=== PATIENT | male | born 1965 | race Caucasian/White ===

== ENCOUNTER 2021-09-27 07:44 | Outpatient (REF) | payer BC, SELFPAY ==
[2021-09-27 08:06] LABS: MANUAL DIFF FLAG NO
[2021-09-27 09:27] LABS: Basophils Percent Auto 0.5 % (0-2); Eosinophils Absolute Auto 0.1 X10*3/uL (0.0-0.4); Eosinophils Percent Auto 1.8 % (0-4); Hematocrit 48.7 % (42.0-52.0); Hemoglobin 16.3 g/dl (14.0-18.0); Imm Gran Abs Auto 0.02 X10*3/uL (0.00-0.03); Imm Gran Pct Auto 0.3 % (0.0-0.4); Lymphocytes Absolute Auto 1.6 X10*3/uL (1.2-4.9); Lymphocytes Percent Auto 25.6 % (20-40); Mean Corpuscular HGB Conc 33.5 g/dl (31.0-36.0); Mean Corpuscular Hemoglobin 28.5 pg (27.0-33.0); Mean Corpuscular Volume 85.3 fL (80.0-98.0); Mean Platelet Volume 10.7 fL (9.4-12.4); Monocytes Absolute Auto 0.6 X10*3/uL (0.1-1.2); Monocytes Percent Auto 8.9 % (2-11); Neutrophils Absolute Auto 3.9 x10*3/uL (2.0-8.3); Neutrophils Percent Auto 62.9 % (45-73); Platelet Count 230 X10*3/uL (160-400); Red Blood Count 5.71 X10*6/uL (4.60-5.80); Red Cell Distribution Width 12.3 % (11.0-16.0); White Blood Count 6.3 X10*3/uL (4.8-10.8)
[2021-09-27 09:34] LABS: Estimated Average Glucose 105 mg/dL; Hemoglobin A1C 152.5393 umol/L; Hemoglobin A1c % 5.3 %
[2021-09-27 09:45] LABS: Alanine Aminotransferase 50 U/L (0-40); Albumin Level 4.5 g/dL (3.5-5.0); Alkaline Phosphatase 72 U/L (39-117); Anion Gap 12 (12-20); Aspartate Amino Transferase 24 U/L (5-37); Bilirubin Total 0.8 mg/dL (0.0-1.0); Blood Urea Nitrogen 13 mg/dL (9-16); Calcium 9.4 mg/dL (8.4-10.2); Carbon Dioxide 25 mmol/L (22-29); Chloride 105 mmol/L (96-108); Cholesterol 167 mg/dL; Estimated Glomerular Filt Rate > 60; Glucose Random 98 mg/dL (60-115); HDL Cholesterol 35 mg/dL; LDL Cholesterol Calculated 87 mg/dl; Potassium 4.3 mmol/L (3.3-5.1); Sodium 138 mmol/L (135-145); Total Protein 7.2 g/dL (6.5-8.0); Triglycerides 228 mg/dL
== END 2021-09-27 07:45 | disposition home or self-care (01) ==
LOC: HO.LAB 07:44
PROVIDERS: PCP Internal Medicine; Visit Provider Internal Medicine
DX: E78.5 Hyperlipidemia, unspecified (principal); R73.01 Impaired fasting glucose
CPT/HCPCS: 36415; 80053; 80061; 83036; 85025

== ENCOUNTER 2022-02-21 07:36 | Outpatient (REF) | payer BC, SELFPAY ==
[2022-02-21 09:06] LABS: Alanine Aminotransferase 28 U/L (0-40); Albumin Level 4.3 g/dL (3.5-5.0); Alkaline Phosphatase 67 U/L (39-117); Aspartate Amino Transferase 21 U/L (5-37); Bilirubin Direct 0.3 mg/dL (0.0-0.5); Bilirubin Total 0.7 mg/dL (0.0-1.0); Total Protein 6.9 g/dL (6.5-8.0)
== END 2022-02-21 07:37 | disposition home or self-care (01) ==
LOC: HO.LAB 07:36
PROVIDERS: PCP Internal Medicine; Visit Provider Internal Medicine
DX: R74.01 Elevation of levels of liver transaminase levels (principal)
CPT/HCPCS: 36415; 80076

== ENCOUNTER 2023-04-07 06:27 | Outpatient (REF) | payer BC, SELFPAY ==
[2023-04-07 06:43] LABS: MANUAL DIFF FLAG NO
[2023-04-07 07:02] LABS: Basophils Percent Auto 0.5 % (0-2); Eosinophils Absolute Auto 0.1 X10*3/uL (0.0-0.4); Hematocrit 49.3 % (42.0-52.0); Hemoglobin 16.7 g/dl (14.0-18.0); Imm Gran Abs Auto 0.02 X10*3/uL (0.00-0.03); Imm Gran Pct Auto 0.4 % (0.0-0.4); Lymphocytes Absolute Auto 1.4 X10*3/uL (1.2-4.9); Lymphocytes Percent Auto 26.2 % (20-40); Mean Corpuscular HGB Conc 33.9 g/dl (31.0-36.0); Mean Corpuscular Hemoglobin 28.8 pg (27.0-33.0); Mean Platelet Volume 10.1 fL (9.4-12.4); Monocytes Absolute Auto 0.5 X10*3/uL (0.1-1.2); Monocytes Percent Auto 9.3 % (2-11); Neutrophils Absolute Auto 3.4 x10*3/uL (2.0-8.3); Neutrophils Percent Auto 61.6 % (45-73); Platelet Count 210 X10*3/uL (160-400); Red Cell Distribution Width 12.3 % (11.0-16.0); White Blood Count 5.5 X10*3/uL (4.8-10.8)
[2023-04-07 07:07] LABS: Estimated Average Glucose 105 mg/dL; Hemoglobin A1c % 5.3 % (<6.0)
[2023-04-07 07:15] LABS: Alanine Aminotransferase 25 U/L (0-40); Albumin Level 4.4 g/dL (3.5-5.0); Alkaline Phosphatase 65 U/L (39-117); Anion Gap 14 (12-20); Aspartate Amino Transferase 21 U/L (5-37); Bilirubin Total 0.7 mg/dL (0.0-1.0); Blood Urea Nitrogen 10 mg/dL (9-16); Calcium 9.7 mg/dL (8.4-10.2); Carbon Dioxide 27 mmol/L (22-29); Chloride 104 mmol/L (96-108); Cholesterol 113 mg/dL (<200); Estimated Glomerular Filt Rate > 60; Glucose Random 103 mg/dL (60-115); HDL Cholesterol 38 mg/dL (>40); LDL Cholesterol Calculated 59 mg/dL (<100); Potassium 4.5 mmol/L (3.3-5.1); Sodium 140 mmol/L (135-145); Total Protein 7.2 g/dL (6.5-8.0); Triglycerides 82 mg/dL (<150)
[2023-04-07 07:30] LABS: Prostate Specific Antigen 0.81 ng/mL (<0.05-4.0)
== END 2023-04-07 06:28 | disposition home or self-care (01) ==
LOC: HO.LAB 06:27
PROVIDERS: PCP Internal Medicine; Visit Provider Internal Medicine
DX: Z12.5 Encounter for screening for malignant neoplasm of prostate (principal); E78.00 Pure hypercholesterolemia, unspecified; R73.01 Impaired fasting glucose
CPT/HCPCS: 36415; 80053; 80061; 83036; 84153; 85025

== ENCOUNTER 2023-10-16 07:49 | Outpatient (REF) | payer BC, SELFPAY ==
[2023-10-16 08:18] LABS: MANUAL DIFF FLAG NO
[2023-10-16 08:32] LABS: Basophils Percent Auto 0.4 % (0-2); Eosinophils Absolute Auto 0.1 X10*3/uL (0.0-0.4); Hematocrit 47.1 % (42.0-52.0); Hemoglobin 16.3 g/dl (14.0-18.0); Imm Gran Abs Auto 0.02 X10*3/uL (0.00-0.03); Imm Gran Pct Auto 0.4 % (0.0-0.4); Lymphocytes Absolute Auto 1.4 X10*3/uL (1.2-4.9); Lymphocytes Percent Auto 26.7 % (20-40); Mean Corpuscular HGB Conc 34.6 g/dl (31.0-36.0); Mean Corpuscular Hemoglobin 29.6 pg (27.0-33.0); Mean Corpuscular Volume 85.6 fL (80.0-98.0); Mean Platelet Volume 9.8 fL (9.4-12.4); Monocytes Absolute Auto 0.5 X10*3/uL (0.1-1.2); Monocytes Percent Auto 9.4 % (2-11); Neutrophils Absolute Auto 3.1 x10*3/uL (2.0-8.3); Neutrophils Percent Auto 61.1 % (45-73); Platelet Count 194 X10*3/uL (160-400); Red Cell Distribution Width 12.1 % (11.0-16.0); White Blood Count 5.1 X10*3/uL (4.8-10.8)
[2023-10-16 08:51] LABS: Estimated Average Glucose 114 mg/dL; Hemoglobin A1c % 5.6 % (<6.0)
[2023-10-16 09:22] LABS: Alanine Aminotransferase 36 U/L (0-40); Albumin Level 4.3 g/dL (3.5-5.0); Alkaline Phosphatase 69 U/L (39-117); Anion Gap 10 (12-20); Aspartate Amino Transferase 20 U/L (5-37); Bilirubin Total 0.7 mg/dL (0.0-1.0); Blood Urea Nitrogen 13 mg/dL (9-16); Calcium 9.3 mg/dL (8.4-10.2); Carbon Dioxide 31 mmol/L (22-29); Chloride 104 mmol/L (96-108); Cholesterol 124 mg/dL (<200); Estimated Glomerular Filt Rate > 60; Glucose Random 106 mg/dL (60-115); HDL Cholesterol 37 mg/dL (>40); LDL Cholesterol Calculated 71 mg/dL (<100); Potassium 4.8 mmol/L (3.3-5.1); Sodium 140 mmol/L (135-145); Total Protein 7.2 g/dL (6.5-8.0); Triglycerides 81 mg/dL (<150)
[2023-10-16 09:28] LABS: Prostate Specific Antigen 0.69 ng/mL (<0.05-4.0)
== END 2023-10-16 07:50 | disposition home or self-care (01) ==
LOC: HO.LAB 07:49
PROVIDERS: PCP Internal Medicine; Visit Provider Internal Medicine
DX: E78.00 Pure hypercholesterolemia, unspecified (principal); Z12.5 Encounter for screening for malignant neoplasm of prostate
CPT/HCPCS: 36415; 80053; 80061; 83036; 84153; 85025

== ENCOUNTER 2024-05-10 07:15 | Outpatient (REF) | payer BC, SELFPAY ==
[2024-05-10 08:31] LABS: Cholesterol 90 mg/dL (<200); HDL Cholesterol 35 mg/dL (>40); LDL Cholesterol Calculated 34 mg/dL (<100); Triglycerides 105 mg/dL (<150)
== END 2024-05-10 07:16 | disposition home or self-care (01) ==
LOC: HO.LAB 07:15
PROVIDERS: PCP Internal Medicine; Visit Provider Internal Medicine
DX: E78.00 Pure hypercholesterolemia, unspecified (principal)
CPT/HCPCS: 36415; 80061

== ENCOUNTER 2024-08-23 06:38 | Outpatient (REF) | payer BC, SELFPAY ==
--- OUTSIDE RECORDS SUMMARY | 2024-08-23 06:41 | XMS_ITS | Data Portability ---
Author Organization [facility] Service Address [address] [place] [address] Assessment Encounter Date Assessment Date Assessment LastModified by Organization Details LastModified Time 04/11/2021 04/11/2021 [id number] [place] [id number] (FOOD COUNTER ATTENDANT) : [facility] LOW MUST MEET 2 OF 3 ELEMENTS: PROBLEMS, DATA OR RISK ELEMENT 1: PROBLEMS ADDRESSED (LOW): 2 OR MORE SELF-LIMITED OR MINOR PROBLEMS OR 1 STABLE CHRONIC ILLNESS OR 1 ACUTE UNCOMPLICATED ILLNESS OR INJURY ELEMENT 2: DATA TO BE REVISED AND ANALYZED (LOW) MUST MEET 1 OF 2 CATEGORIES: CATEGORY 1. REVIEW OF PRIOR EXTERNAL NOTES/RESULTS, ORDERING OF TEST(S) CATEGORY 2. ASSESSMENT REQUIRING INDEPENDENT HISTORIAN(S) INCLUDE WHO THE HISTORIAN IS AND RELATION TO PT AND WHY PT IS UNABLE TO GIVE COMPLETE HISTORY ELEMENT 3: RISK (LOW) RISK OF COMPLICATIONS AND/OR MORBIDITY OR MORTALITY OF PATIENT MANAGEMENT PROVIDER MUST THOROUGHLY DOCUMENT ALL OF THE ELEMENTS COVERED Not available 04/11/2021 16:04:08 06/07/2024 06/07/2024 [id number] [place] [id number] (FOOD COUNTER ATTENDANT) : [facility] LOW MUST MEET 2 OF 3 ELEMENTS: PROBLEMS, DATA OR RISK ELEMENT 1: PROBLEMS ADDRESSED (LOW): 2 OR MORE SELF-LIMITED OR MINOR PROBLEMS OR 1 STABLE CHRONIC ILLNESS OR 1 ACUTE UNCOMPLICATED ILLNESS OR INJURY ELEMENT 2: DATA TO BE REVISED AND ANALYZED (LOW) MUST MEET 1 OF 2 CATEGORIES: CATEGORY 1. REVIEW OF PRIOR EXTERNAL NOTES/RESULTS, ORDERING OF TEST(S) CATEGORY 2. ASSESSMENT REQUIRING INDEPENDENT HISTORIAN(S) INCLUDE WHO THE HISTORIAN IS AND RELATION TO PT AND WHY PT IS UNABLE TO GIVE COMPLETE HISTORY ELEMENT 3: RISK (LOW) RISK OF COMPLICATIONS AND/OR MORBIDITY OR MORTALITY OF PATIENT MANAGEMENT PROVIDER MUST THOROUGHLY DOCUMENT ALL OF THE ELEMENTS COVERED Not available 06/07/2024 16:21:16 Plan of Treatment Reminders Order Date Submit Date Provider Last Modified By Organization Details Last Modified Time Details Appointments FOLLOW UP 15 2024 10:45A M DR FINNEY Not available Not available Not available Lab lipid panel, blood 2023 [facility], [address] [place] [address], [id number], 05/11/2024 13:18:37 lipid panel, blood 2023 024 [facility], [address] [place] [address], [address], 05/11/2024 13:18:37 hepatic function panel, serum 2021 [facility], [address] [place] [address], [address], 02/23/2022 11:37:00 HbA1c (hemoglob in A1c), blood 2020 [facility], [address] [place] [address], [address], 04/11/2021 16:09:32 lipid panel, blood 2020 [facility], [address] [place] [address], [address], 04/11/2021 16:09:32 CMP, serum or plasma 2020 [facility], [address] [place] [address], [address], 09/29/2021 11:29:34 CBC w/ auto diff 2020 [facility], [address] [place] [address], [address], 04/11/2021 16:09:32 Referral None recorded. Procedures None recorded. Surgeries None recorded. Imaging CT, chest, w/o contrast - Procedure codes: 53645Rrit Reference #: [id number] 7Resoluti on: Completed on at 01:10 pm. Call ref #[id number] 77.follow up of jan 2023 ct heart finding of LLL pulm nodule 2023 024 [facility], [address] [place], [address], 12/08/2023 08:27:47 Medication Orders rosuvasta tin 20 mg tablet 2023 024 [facility], [place], [address], 06/07/2024 16:20:56 rosuvasta tin 40 mg tablet 2023 024 [facility], [place], [address], 11/23/2023 16:35:09 simvastat in 20 mg tablet 2021 022 [facility], [place], [address], 01/24/2023 21:06:28 simvastat in 20 mg tablet 2020 021 [facility] [facility], [address] [place] [address], [address], 01/24/2023 21:06:28 Patient TargetsNo targets recorded. Patient Instructions Encounter Date Encounter Id Patient Instructions Last Modified By Organization Details Last Modified Time 04/11/2021 [id number] prediabetes: car e instructions Not available 04/11/2021 16:04:28 high cholesterol : care instructions Not available 04/11/2021 16:04:28 06/07/2024 [id number] high cholesterol : care instructions Not available 06/07/2024 16:20:54 Reason for Referral None Reported. Results Created Date Observation Date Name Description Value Unit Range Abnormal Flag Note LastModifiedBy Organization Detail LastModifiedTime 01/23/2001/22/2023 CT, heart , w/o contr ast, w/ coron iliana calci um score No observ ation record ed. [email or web address] [facility] [address] [facility], [place], [address], 01/25/2023 10:38:53 12/28/19 24 12/28/2023 CT, chest , w/o contr ast No observ ation record ed. [facility] [address], [place], [address], 12/28/2023 16:38:04 Result Notes None recorded. Problems Name Problem SNOMED Code Status Onset Date Resolution Date Notes Provider Name and Address Organization Details Recorded Time Liver enzymes level above referenc e range 528457826 Active 2021 Aaron Finney DO [address] [place] [address], [phone], [facility] 2 09:56:25 Impaired fasting glycemia 033638839 Active 2017 Neelam mcintyre [facility] 8 09:15:39 Hypercho lesterol emia 92106377 Completed 201708/27/2017 Aaron Finney DO [address] [place] [address], [address], [facility] 3 21:06:01 Hyperlip idemia 53569262 Active 2017 Neelam mcintyre [facility] 8 14:28:29 Hypercho lesterol emia 06431782 Active 2022 Aaron Finney DO [address] [place] [address], [address], [facility] 3 21:06:01 Solitary nodule of lung 720390010 Active 2023 Aaron Finney DO [address] [place] [address], [place], [address], [facility] 16:33:52 Problem Notes None recorded. Procedures Surgical History None recorded. Imaging Results Imaging Date Name Status LastModified by Organiz ation Details LastModified Time 01/22/2023 CT, heart, w/o contrast, w/ coronary calcium score completed [email or web address] [facility] [address] [place], [address], 01/25/2023 10:38:53 12/28/2023 CT, chest, w/o contrast [facility] [address], [place], [address], 12/28/2023 16:38:04 Procedure Notes None recorded. Medical Equipment None Reported. Allergies No known drug allergies Medications Name Sig Start Date Stop Date Status Note LastModified by Organization Details LastModified Time aspirin 81 mg capsule Take 1 capsule every day by oral route. active Not Available Not Available No t Available prednisone 10 mg tablet Take 5 tablets every day by oral route for 6 days. 11/05 completed Not Available Not Available Not Available simvastatin 40 mg tablet 1 po qd 06/07 completed Not Available Not Available Not Available simvastatin 20 mg tablet TAKE 1 TABLET AT BEDTIME- needs appt and bloodwork for further refills 01/24 completed Not Available Not Available Not Available diclofenac sodium 75 mg tablet,nixon yed release take 1 tab po bid take with food and water 11/05 completed Not Available Not Available Not Available bisacodyl 5 mg tablet,nixon yed release TK 4 TS PO QD FOR 1 DAY 04/11 completed Not Available Not Available Not Available doxycycline hyclate 20 mg tablet 10/05 completed Not Available Not Available Not Available rosuvastati n 20 mg tablet TAKE 1 TABLET DAILY active Not Available Not Available No t Available rosuvastati n 40 mg tablet TAKE 1 TABLET DAILY 2024 active Not Available Not Available Not Avai lable peg 3350-electr olytes 236 gram-22.74 gram-6.74 gram-5.86 gram solution MIX AND DRINK UTD 04/11 completed Not Available Not Available Not Available Co Q-10 400 mg capsule Take 1 capsule every day by oral route. active Not Available Not Available No t Available Fish Oil 1,000 mg (120 mg-180 mg) capsule Take 1 capsule every day by oral route. active Not Available Not Available No t Available Vitals Date Recorded Body height Body mass index (BMI) Body weight Heart rate Oxygen saturation Oxygen saturation in Arterial blood by Pulse oximetry Systolic blood pressure Diastolic blood pressure Provider Name and Address Organization Details Last Updated DateTime 1 171.45 cm 33.3 kg/m2 50290.9 5 g 73 /min 99 % 99 % 118 mm[Hg] 80 mm[Hg] Aaron Mejia DannarenaeDO [address] [place] [address], [phone] [place] 1 15:48:51 Date Recorded Body height Body mass index (BMI) Body weight Heart rate Oxygen saturation Oxygen saturation in Arterial blood by Pulse oximetry Systolic blood pressure Diastolic blood pressure Provider Name and Address Organization Details Last Updated DateTime 2 171.45 cm 32.5 kg/m2 04933.8 3 g 74 /min 98 % 98 % 110 mm[Hg] 76 mm[Hg] Aaron TrianaVinicio Clayrenae, [address] [place] [address], [phone] 7[facility] [place] 2 09:36:16 Date Recorded Body height Body mass index (BMI) Body weight Heart rate Oxygen saturation Oxygen saturation in Arterial blood by Pulse oximetry Systolic blood pressure Diastolic blood pressure Provider Name and Address Organization Details Last Updated DateTime 3 170.18 cm 30.9 kg/m2 86037.7 g 74 /min 98 % 98 % 138 mm[Hg] 80 mm[Hg] Gladis Rao [facility] 3 15:34:54 Date Recorded Body height Body mass index (BMI) Body weight Heart rate Respiratory rate Oxygen saturation Oxygen saturation in Arterial blood by Pulse oximetry Systolic blood pressure Diastolic blood pressure Provider Name and Address Organization Details Last Updated DateTime 4 171.45 cm 31.6 kg/m2 88381.6 4 g 70 /min 16 /min 99 % 99 % 128 mm[Hg] 74 mm[Hg] Christiano Vieyra [facility] 4 16:14:23 Date Recorded Body height Body mass index (BMI) Body weight Heart rate Oxygen saturation Oxygen saturation in Arterial blood by Pulse oximetry Systolic blood pressure Diastolic blood pressure Provider Name and Address Organization Details Last Updated DateTime 4 172.72 cm 32.4 kg/m2 05252.1 7 g 70 /min 97 % 97 % 124 mm[Hg] 70 mm[Hg] Christiano Vieyra [facility] 4 15:45:49 Social History Question Answer Notes LastModified by Organizat ion Details LastModified Time Tobacco Smoking Status Never Smoker Not Available [facility] 04/23/2020 03:36:24 What Was The Date Of Your Most Recent Tobacco Screening? 06/07/2024 [email or web address] Information not available 06/07/2024 Do You Or Have You Ever Used Any Other Forms Of Tobacco Or Nicotine? No [email or web address] Information not available 04/14/2023 Sex: Unknown Functional Status None recorded. Mental Status None recorded. Family History Nothing Reported. Medical History No medical history recorded. Immunizations Vaccine Type Date Status Note Provider Nam e and Address Organization Details Recorded Time COVID-19, mRNA, LNP-S, PF, 100 mcg/0.5mL dose or 50 mcg/0.25mL dose 07/04/2020 completed [place] [address] [place], [address], [facility] 04/11/2021 15:48:07 COVID-19, mRNA, LNP-S, PF, 100 mcg/0.5mL dose or 50 mcg/0.25mL dose 08/01/2020 completed [place] [address] [place], [address], [facility] 04/11/2021 15:48:11 COVID-19, mRNA, LNP-S, PF, 100 mcg/0.5mL dose or 50 mcg/0.25mL dose 06/19/2021 completed [place] [address] [place], [address], [facility] 10/14/2021 09:35:11 Past Encounters Encounter ID Performer Location Encounter Start Date Encounter Closed Date Diagnosis/Indication Diagnosis SNOMED-CT Code Diagnosis ICD10 Code Diagnosis Note [id number] [facility] [address] [facility],[place] [address] 10/05/2017 14:28:39 10/05/2017 15:09:46 Impaired fasting glycemia 027345041 R73.01 well controlled with diet and exercise Hyperlipidemia 38447793 E78.00 continues to have a low HDL, however he's had very good control of LDL/trig and successful weight loss. will consider d/c statin if can maintain weight lost x 1 year. [id number] Winsome Massey [facility] [address],[place] [address] 12/21/2017 14:12:14 12/21/2017 14:32:17 Infrapatellar bursitis 83289623 M70.51 compressio n brace schedule ortho appointmen t if diclofenac fails Hyperlipidemia 92163840 E78.00 continues to take meds as rx'd will check labs at upcoming f/u [id number] [facility] [address],[place] [address] 03/30/2018 15:10:02 03/30/2018 15:48:43 Contact dermatitis caused by urushiol from [facility] 962881549 L25.5 will try 50 mg x 6 days, if persists will give one refill to continue pred, and a taper schedule was written up for the patient Impaired f asting glycemia 542218020 R73.01 well controlled with diet and exercise Hyperlipidemia 39991594 E78.00 continues to take meds as rx'd will check labs at upcoming f/u [id number] Aaron Finney [facility] [address] [place] [address],[place] [address] 11/06/2019 14:13:03 11/06/2019 15:22:14 Adult health examination 826930254 Z00.00 reviewed lab in detail Active or passive immunization 161702854 Z23 Hyperlipidemia 57830466 E78.5 [id number] Araon Finney [facility] [address] [facility] [address],[place] [address] 04/11/2021 15:43:27 04/11/2021 16:16:25 Hyperlipidemia 63914425 E78.5 Impaired f asting glycemia 938723095 R73.01 we will chk but his last a1c was 5.4 with a FBS of 100 so doubt this is an issue and there is no dm in the family [id number] Aaron Finney [facility] [address] [facility] [address], [place] [address] 10/14/2021 09:30:54 10/14/2021 10:23:12 Active or passive immunization 632529465 Z23 advised he is due for Tdap Adult heal th examination 214802006 Z00.00 reviewed lab in detail Liver enzy mes level above reference range 037067313 R74.01 Hyperlipidemia 36682163 E78.5 [id number] Aaron Finney [facility] [address] [facility] [address],[place] [address] 04/14/2023 15:28:28 04/14/2023 16:35:37 Active or passive immunization 520866114 Z23 advised he is due for Tdap Adult heal th examination 697441103 Z00.00 reviewed lab in detail Hypercholesterolemia 136 70867 E78.00 Hyperlipidemia 47583066 E78.5 [id number] Aaron Finney [facility] [address] [facility] [address],[place] [address] 11/23/2023 16:05:35 11/23/2023 16:47:07 Hypercholesterolemia 36519869 E78.00 has mild Impaired f asting glycemia 006491953 R73.01 we will chk but his last a1c was 5.4 with a FBS of 100 so doubt this is an issue and there is no dm in the family Liver enzy mes level above reference range 946635781 R74.01 normal Depression screening 171 286238 Z13.31 neg Solitary n odule of lung 784784715 R91.1 prob ln but radilogy wanted follow up ct in 12 mo [id number] DO [facility] [address],[place] [address] 06/07/2024 15:36:04 06/07/2024 16:26:32 Depression screening 127755495 Z13.31 neg Hyperlipidemia 37149152 E78.5 amazing response to 40mg dose of rosuvastat even too good a response will back off to 20mg and rechk in august Health Concerns Section Related Observation LastModified by Organization Detai ls LastModified Time None Recorded Concern Status LastModified by Organization Details LastModified Time None Recorded Advance Directives Directive None Recorded Payers Encounter Date Sequence Insurance Name Policy Number Policy [place] Covered Member ID Leavitt Member ID Guarantor Name 04/11/2021 1 [place] [id number] Rolando Knox [id number] 75 Rolando Knox 10/14/2021 1 [place] [id number] Rolando Knox [id number] Rolando Knox 04/14/2023 1 [place] [id number] Rolando Knox [id number] 75 Rolando Knox 11/23/2023 1 [place] [facility] [id number] Rolando Konx [id number] Rolando Knox 06/07/2024 1 [place] [facility] [id number] Rolando Knox [id number] Rolando Knox Notes Date Note Type Note Provider Name a nd Address Organization Details Recorded Time 1 text/html here for rechk and is doing ok overallno cp no sobappetite is goodsleep is ok Aaron Finney DO [address] [facility], [place], [address], [facility] 04/11/2021 16:08:19 2 text/html Annual WellnessReported bypatient.Diet and Nutrition:healthy diet Fracture Risk:no history of fractures; no recent explained fracture; no sudden unexplained fractures; no previous musculoskeletal injuries Physical Activity:exercises on a regular basis; recent increase in physical activity; good physical condition Additional Lifestyle Factors:no tobacco use; no alcohol intake; stopped drinking alcohol Depression Risk:never feels sad, empty, or tearful; no loss of interest in activities; no significant changes in weight; no sleep disturbances or insomnia; no agitation; no loss of energy; no feelings of worthlessness or guilt; no thoughts of suicide; no history of depression; no history of mood disorders Hearing:no loss of hearing Vision:no vision problems Aaron Finney DO [address] [place] [address], [address], [facility] 10/14/2021 09:58:56 3 text/html Annual WellnessReported bypatient.Diet and Nutrition:healthy diet Fracture Risk:no history of fractures; no recent explained fracture; no sudden unexplained fractures; no previous musculoskeletal injuries Physical Activity:exercises on a regular basis; recent increase in physical activity; good physical condition Additional Lifestyle Factors:no tobacco use; no alcohol intake; stopped drinking alcohol Depression Risk:never feels sad, empty, or tearful; no loss of interest in activities; no significant changes in weight; no sleep disturbances or insomnia; no agitation; no loss of energy; no feelings of worthlessness or guilt; no thoughts of suicide; no history of depression; no history of mood disorders Hearing:no loss of hearing Vision:no vision problems has lost 18 lbs and is doing good overallno major issuesno cp no sobrelates that he is walking daily 2 miles Aaron Finney DO [address] [place] [address], [address], [facility] 04/14/2023 16:11:10 4 text/html left eye is notably irritated last week used hypertonic saline to get rid ofhere for reviewof ct heart Aaron Finney DO [address] [place], [address], [facility] 11/23/2023 16:43:31 4 text/html here for follow upstates doing welltolerates rosuvastat Aaron Finney DO [address] [place] [address], [address], [facility] 06/07/2024 16:21:51
--- OUTSIDE RECORDS SUMMARY | 2024-08-23 06:41 | XMS_ITS | Data Portability ---
Author Organization [facility], , [facility] Address [address] [place] [address] Assessment No assessment recorded. Plan of Treatment Reminders Order Date Submit Date Provider Last Modified By Organization Details Last Modified Time Details Appointments None record ed. Lab None record ed. Referral None record ed. Procedures None record ed. Surgeries None record ed. Imaging None record ed. Medication Orders None record ed. Patient TargetsNo targets recorded. Patient InstructionsNo instructions recorded. Reason for Referral None Reported. Results Created Date Observation Date Name Description Value Unit Range Abnormal Flag Note LastModifiedBy Organization Detail LastModifiedTime Result Notes None recorded. Procedures Surgical History Date Name Laterality Status Provider Name and Address Organization Details Recorded Time 1 Candace - Colonoscopy completed Reece Maria MD [address] [place] [address], [phone], [facility] 06/24/2020 12:25:12 5 Candace - Colonoscopy completed Reece Maria MD [address] [place] [address], [address], [facility] 04/19/2015 14:07:58 Imaging Results None recorded. Procedure Notes None recorded. Medical Equipment None Reported. Allergies No known drug allergies Medications Name Sig Start Date Stop Date Status Note LastModified by Organization Details LastModified Time prochlorperazine maleate 10 mg tablet active Not Available Not Available Not Available terbinafine HCl 250 mg tablet active Not Available Not Availabl e Not Available simvastatin 20 mg tablet TK 1 T PO HS active Not Available Not Available No t Available bisacodyl 5 mg tablet,delayed release TK 4 TS PO QD FOR 1 DAY active Not Available Not Available No t Available simvastatin active Not Available Not A vailable Not Available Baby Aspirin active Not Available Not Available Not Available peg 3350-electrolytes 236 gram-22.74 gram-6.74 gram-5.86 gram solution MIX AND DRINK UTD active Not Available Not Available No t Available Vitals None Recorded Social History None recorded. Functional Status None recorded. Mental Status None recorded. Family History Nothing Reported. Medical History No medical history recorded. Past Encounters Encounter ID Performer Location Encounter Start Date Encounter Closed Date Diagnosis/Indication Diagnosis SNOMED-CT Code Diagnosis ICD10 Code Diagnosis Note [id number] Ignacia Kendall [facility], [address] [address] 04/19/2015 12:33:58 04/19/2015 14:49:35 [id number] Rina Wu RN [facility], [address] [address] 06/24/2020 10:46:17 06/24/2020 14:09:15 Health Concerns Section Related Observation LastModified by Organization Detai ls LastModified Time None Recorded Concern Status LastModified by Organization Details LastModified Time None Recorded Advance Directives Directive None Recorded Payers Encounter Date Sequence Insurance Name Policy Number Policy [place] Covered Member ID [place]av[place] Member ID Guarantor Name 04/19/2015 1 [facility] [id number] Rolando Knox [id number] Rolando Knox 06/24/2020 1 [place] [id number] Rolando Knox [id number] Rolando Knox
[2024-08-23 07:34] LABS: Cholesterol 121 mg/dL (<200); HDL Cholesterol 40 mg/dL (>40); LDL Cholesterol Calculated 42 mg/dL (<100); Triglycerides 196 mg/dL (<150)
== END 2024-08-23 06:39 | disposition home or self-care (01) ==
LOC: HO.LAB 06:38
PROVIDERS: PCP Internal Medicine; Visit Provider Internal Medicine
DX: E78.5 Hyperlipidemia, unspecified (principal)
CPT/HCPCS: 36415; 80061